=== PATIENT | female | born 1960 | race Caucasian/White ===

== ENCOUNTER 2021-08-07 07:18 | Day surgery (SDC) | payer BC ==
[2021-08-06 10:44] VITALS: BMI 26.2
[2021-08-07] MEDS ORDERED: PROPOFOL 20 ML ONE ×2 (08:34)
[2021-08-07 08:58] VITALS: PULSE 67
[2021-08-07 08:59] VITALS: BP 120/74
[2021-08-07 09:15] VITALS: TEMP 97.3
== END 2021-08-07 09:20 | disposition home or self-care (01) ==
LOC: FASU-ENDO 07:18 → EDBD 09:15 → FASU-ENDO 09:20
PROVIDERS: ATTEND Internal Medicine Gastroenterology
PROC: 0DB78ZX Excision of Stomach, Pylorus, Via Natural or Artificial Opening Endoscopic, Diagnostic (ICD-10-PCS; 2021-08-07)
PROC: 0DB98ZX Excision of Duodenum, Via Natural or Artificial Opening Endoscopic, Diagnostic (ICD-10-PCS; principal; 2021-08-07 08:35)
DX: K29.50 Unspecified chronic gastritis without bleeding (principal); K21.9 Gastro-esophageal reflux disease without esophagitis; K44.9 Diaphragmatic hernia without obstruction or gangrene; R12 Heartburn
CPT/HCPCS: 88305-TC; 88342-TC